=== PATIENT | female | born 1955 | race Caucasian/White ===

== ENCOUNTER → 2016-08-16 | Outpatient (CLI) | payer OTHER ==
[~2016-08-16] MED LIST: ADVAIR 250-501 EACH IH; ALBUTEROL MININEB NEB; ALBUTEROL17 GM INH; AUGMENTIN875 MG DOB; AUGMENTIN875 MG PO; AZITHROMYCIN250 MG PO; BENZONATATE PO; CEFTRIAXONE500 MG PO; COMBIVENT INH14.7 G1 IH; COMBIVENT MININEB INH; COMBIVENT U/D3 M2 INH; COMBIVENT U/D3 ML INH; CYANOCOBAL1000 MCG/M INJ; DORYX100 M1 PO; DOXYCYCLINE HY100 M1 PO; DUONEB 2.5-0.5 M3 ML NEB; GUAIFENESIN600 MG PO; HYDRALAZINE HCL25 MG PO; HYDROCODONE-APA1 T55 PO; IBUPROFEN400 MG PO; IPRAT-ALBUT 0.5-3 ML INH; LEVAQUIN PO; LEVAQUIN750 M1 PO; LORTAB 5/500 TA1 TA1 PO; MOTRIN400 MG PO; MUCINEX D ER T1 EACH PO; NAPROSYN500 MG PO; NICOTINE TRANSD21 MG EXT; OMNICEF300 MG PO; PEN-VEE K PO; PRED MILD5 ML OU; PREDNISONE PO; PREDNISONE10 MG PO; PREDNISONE10 MG/DOSE PO; PREDNISONE50 MG PO; PYRIDOXINE HCL PO; SINGULAIR; VIBRAMYCIN100 M1 PO
--- NOTE | ~2016-08-16 | MY11 ---
[facility] A Service of [facility] & [facility] RADIOLOGY TEXT RESULTS PATIENT: MALINDA RACHEL LOCATION: [facility] : 55 UNIT #: [id number] AGE: [address]: Farida Dotson MD SEX: F ORDER DR: [id number] [facility]. [place], [place] [address] [id number] O MR#: [id number] Acc #: [id number] NAME: MALINDA RACHEL : 1955 SEX: F STUDY DATE/TIME: 08/16/2016 10:36 UNIT: [facility] ROOM: STUDY DESCRIPTION: MY Mammogram Screening Dig [facility]by Attending Physician: Farida Dotson M.D. Referring Physician: Farida Dotson M.D. Ordering Physician: Farida Dotson M.D. Primary Care Physician: Farida Dotson M.D. MEDICAL IMAGING REPORT This report is preliminary unless electronic signature is present EXAM Bilateral digital screening mammogram with CAD. DATE 08/16/2016 HISTORY 60-year-old female with a family history of breast cancer in an aunt. No personal history of breast cancer or current complaints. COMPARISON Bilateral screening mammogram performed at [facility] 09/22/2014, 12/23/2013, 10/31/2011. FINDINGS CC and MLO views were obtained of each breast utilizing digital technique and reviewed with an FDA-approved CAD device. Scattered fibroglandular densities are present bilaterally. Benign intramammary lymph nodes are seen within the upper outer quadrant of the left breast central third, unchanged since 2011, in keeping with benign findings. Benign appearing fatty replaced lymph nodes are seen in each axillary region, likewise unchanged. No architectural distortion is seen. Benign round calcifications are present within each breast. A biopsy clip is located within the upper outer right breast anterior third, unchanged. IMPRESSION BIRADS 2. Benign findings. Routine bilateral screening mammogram is recommended in 1 year. Patients over the age of 40 are entered into a reminder system with target due date for the next mammogram. A result letter will also be sent to the patient. [facility] A Service of [facility] & [facility] RADIOLOGY TEXT RESULTS PATIENT: MALINDA RACHEL LOCATION: [facility] : 55 UNIT #: [id number] AGE: [address]: Farida Dotson MD SEX: F ORDER DR: BIRADS: 2 Benign finding. Dictated by... Suha Rey M.D. THIS IS AN ELECTRONICALLY VERIFIED REPORT Suha Rey M.D. at 08/17/2016 4:35 PM Olivia/bridger TD: 08/17/2016 15:55 JOB #: [id number] MEDICAL IMAGING REPORT Page 1 of 1 COPY
== END | disposition home or self-care (01) ==
LOC: CWCC 10:03
DX: Z12.31 Encounter for screening mammogram for malignant neoplasm of breast (principal); Z80.3 Family history of malignant neoplasm of breast
CPT/HCPCS: G0202